=== PATIENT | male | born 1990 | race Caucasian/White ===

== ENCOUNTER 2017-09-05 10:45 | Emergency (ER) | payer OTHER ==
[2017-09-05] MEDS: IBUPROFEN 600 MG TAB PO (11:34)
== END 2017-09-05 12:18 | disposition home or self-care (01) ==
LOC: FTE 10:45
DX: S90.02XA Contusion of left ankle, initial encounter (principal); J45.909 Unspecified asthma, uncomplicated; F17.210 Nicotine dependence, cigarettes, uncomplicated; X58.XXXA Exposure to other specified factors, initial encounter; Y92.310 Basketball court as the place of occurrence of the external cause
CPT/HCPCS: 73610; 99283-25